=== PATIENT | female | born 1985 | race Two or more races ===

== ENCOUNTER 2016-12-25 16:22 | Emergency (ER) | payer MEDICAID ==
[~2016-12-25] VITALS: Ht 167.6 cm; Wt 89.8 kg
[2016-12-25 17:06] VITALS: BP 146/77
== END 2016-12-25 18:03 | disposition home or self-care (01) ==
LOC: EDBD 16:22 → ER 16:22

== ENCOUNTER 2017-08-12 19:56 | Emergency (ER) | payer MEDICAID ==
[~2017-08-12] VITALS: Ht 160 cm; Wt 89.8 kg
[2017-08-12 20:11] VITALS: BP 155/100
[2017-08-13] MEDS ORDERED: IBUPROFEN 600 MG TAB PO ONE (01:00)
== END 2017-08-13 00:52 | disposition home or self-care (01) ==
LOC: ER 19:56 → EDBD 19:56 → ER 08-13 00:52
DX: S16.1XXA Strain of muscle, fascia and tendon at neck level, initial encounter (principal); S46.912A Strain of unspecified muscle, fascia and tendon at shoulder and upper arm level, left arm, initial encounter; V49.49XA Driver injured in collision with other motor vehicles in traffic accident, initial encounter; Y93.89 Activity, other specified; Y92.89 Other specified places as the place of occurrence of the external cause; Y99.8 Other external cause status
CPT/HCPCS: 72125

== ENCOUNTER 2019-05-06 22:08 | Emergency (ER) | payer MEDICAID ==
[~2019-05-06] VITALS: Ht 162.6 cm; Wt 86.2 kg
[2019-05-07 01:11] VITALS: BP 104/84
[2019-05-07] MEDS ORDERED: cefTRIAXone SOD 1,000 MG VL IM ONE (01:15)
[2019-05-07] MEDS ORDERED: HYDROcodone-ACET 10/325MG TAB PO ONE (01:15)
== END 2019-05-07 02:26 | disposition home or self-care (01) ==
LOC: EDBD 22:08 → ER 22:10
DX: J06.9 Acute upper respiratory infection, unspecified (principal); H66.93 Otitis media, unspecified, bilateral
CPT/HCPCS: 96372; 99283; J0696

== ENCOUNTER 2025-07-15 14:01 | Emergency (ER) | payer MEDICAID ==
[~2025-07-15] VITALS: Ht 157.5 cm; Wt 90.9 kg
--- NOTE | 2025-07-15 14:22 | ED.PDOC ---
History of Present Illness HPI Comments 39 y/o obese F is BIBA for c/c of palpitations and generalized weakness. Patient endorses on onset of symptoms following intake of 1x 125mg THC edible at 0930, this morning. She denies any chest pain, shortness of breath, nausea, vomiting, or further acute symptoms. Significant history for cardiomegaly and p olysubstance abuse. No further pertinent events or history reported. Per EMS personnel report, patient's vitals were stable and within normal limits on scene and en route, with exception of being tachycardic in the 110's range. 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 Past Medical History Past Medical History (Other): cardiomegaly Surgical History: Appendectomy, Hernia Repair OIL DIPPER History: No Pertinent OIL DIPPER History Family History Family History: Reviewed,noncontributory to illness, No family hx of HTN, No family hx ofKidney shalini, No family hx of Liver shalini, No family hx of Lung shalini, No family hx of Stroke, Family hx of DM, Family hx of Cancer, Family hx of heart shalini Social History Smoker: Non-Smoker Alcohol: Occasionally Drugs: Marijuana Lives In: Home Constitutional: denies: chills, diaphoresis, fatigue, fever, malaise, sweats, weakness, others EENTM: denies: blurred vision, double vision, ear bleeding, ear discharge, ear drainage, ear pain, ear ringing, eye pain, eye redness, hearing loss, mouth pain, mouth swelling, nasal discharge, nose bleeding, nose congestion, nose pain, photophobia, tearing, throat pain, throat swelling, voice changes, others Respiratory: denies: cough, hemoptysis, orthopnea, SOB at rest, shortness of breath, SOB with excertion, stridor, wheezing, others Cardiovascular: reports: palpitations; denies: chest pain, dizzy spells, diaphoresis, Dyspnea on exertion, edema, irregular heart beat, left arm pain, lightheadedness, PND, syncope, others Gastrointestinal: denies: abdomen distended, abdominal pain, blood streaked bowels, constipated, diarrhea, dysphagia, difficulty swallowing, hematemesis, melena, nausea, poor appetite, poor fluid intake, rectal bleeding, rectal pain, vomiting, others Genitourinary: denies: abnormal vagina bleeding, burning, dyspareunia, dysuria, flank pain, frequency, hematuria, incontinence, pain, , vagina discharge, urgency, others Neurological: reports: weakness; denies: dizziness, fainting, headache, left sided numbness, left sided weakness, numbness, paresthesia, pre-existing deficit, right sided numbness, right sided weakness, seizure, speech problems, tingling, tremors, others Musculoskeletal: denies: back pain, gout, joint pain, joint swelling, muscle pain, muscle stiffness, neck pain, others Integumetry: denies: bruises, change in color, change in hair/nails, dryness, laceration, lesions, lumps, rash, wounds, others Allergic/Immunocompromised: denies: Difficulty Healing, Frequent Infections, Hives, Itching, others Hematologic/Lymphatic: denies: anemia, blood clots, easy bleeding, easy bru ising, swollen glands, others Endocrine: denies: excessive hunger, excessive sweating, excessive thirst, e xcessive urination, flushing, intolerance to cold, intolerance to heat, unexplained weight gain, unexplained weight loss, others Psychiatric: denies: anxiety, bipolar disorder, depression, hopeless, panic disorder, schizophrenia, sleepless, suicidal, others All Other Systems: Reviewed and Negative Physical Exam General Appearance: No Apparent Distress HEENT: Normal ENT Inspection, Pharynx Normal, TMs Normal Neck: Full Range of Motion, Non-Tender, Normal, Normal Inspection Respiratory: Chest Non-Tender, Lungs Clear, No Accessory Muscle Use, No Respiratory Distress, Normal Breath Sounds Cardiovascular: No Edema, No JVD, No Murmur, No Gallop, Normal Peripheral Pulses, Regular Rate/Rhythm Breast Exam: Deferred Gastrointestinal: No Organomegaly, Non Tender, No Pulsatile Mass, Normal Bowel Sounds, Soft Genitalia: Deferred Pelvic: Deferred Rectal: Deferred Extremities: No calf tenderness, Normal capillary refill, Normal inspection, Normal range of motion, Non-tender, No pedal edema Musculoskeletal : Apperance: Normal Neurologic: Alert, parachute inspector II-XII nml as Tested, No Motor Deficits, Normal Affect, No Sensory Deficits, Other (The patient is somewhat anxious) Cerebellar Function: Normal Reflexes: Normal Skin: Dry, Normal Color, Warm Lymphatic: No Adenopathy Was a procedure done? Was a procedure done?: No EKG EKG : Pulse Rate (adult): 114 [place]: Normal Cardiac Rhythm: ST Block: None Hypertrophy: None ST: Normal Differential Dx Considerations may include: anxiety, arrhythmia, dehydration, electrolyte imbalance, adverse substance effect, among others X-Ray, Labs, Meds, VS Vital Signs Date Time Temp Pulse Resp B/P (MAP) Pulse Ox O2 Delivery O2 Flow Rate FiO2 07/15/25 14:22 114 07/15/25 14:15 114 07/15/25 14:05 98.5 110 20 126/84 99 98.5 Lab Test 07/15/25 14:20 Range/Units Urine Color Colorless Yellow Urine Clarity Clear Clear Urine pH 7.0 5.0-9.0 Urine Specific [place] 1.003 1.001-1.035 Urine Protein Negative Negative Urine Ketones Negative Negative Urine Blood Negative Negative /uL Urine Nitrite Negative Negative Urine Bilirubin Negative Negative Urine Urobilinogen Normal Negative mg/dL Urine Leukocyte Esterase Negative Negative /uL Urine RBC <1 0 - 4 /hpf Urine Microscopic WBC < 1 0-5 /HPF Urine Squamous Epithelial Cells Few <5 /hpf Urine Bacteria None seen None Seen /hpf Urine Glucose Normal Normal mg/dL Urine Test Negative Negative The patient's urine test is negative for any infection The patient is being discharged The patient will follow up with the primary care doctor The patient will return to the emergency department's condition worsens The patient's diagnosis is acute anxiety Time of 1ST Reevaluation: 14:40 Reevaluation 1ST: Unchanged Patient Education/Counseling: Diagnosis, Treatment, Prognosis, Need For Follow Up Family Education/Counseling: No Family Present SEPSIS Sepsis Screen Physician Orders Electrocardigram (07/15/25 14:12) [place] Iv (07/15/25 ) Vital Signs Date Time Temp Pulse Resp B/P (MAP) Pulse Ox O2 Delivery O2 Flow Rate FiO2 07/15/25 14:22 114 07/15/25 14:15 114 07/15/25 14:05 98.5 110 20 126/84 99 98.5 Departure 1 Departure Time of Disposition: 16:08 Impression: Primary Impression: Acute anxiety Disposition: HOME / SELF CARE / HOMELESS Condition: Fair Discharged With: Self Critical Care Note Critical Care Time?: No Stability Stability form required: No Heart Score Heart Score: Heart Score Response (Comments) Value History N/A 0 EKG N/A 0 Age N/A 0 Risk Factors N/A 0 Troponin N/A 0 Total 0 I personally scribed for LION MARCUS MD ([email or web address]) on 07/15/25 at 14:22. Electronically submitted by Thomas Palafox ([email or web address]). LION MARCUS MD Jul 15, 2025 14:22
[2025-07-15] MEDS: SODIUM CHLORIDE 0.9% 1,000 ML IV ONE (14:30)
[2025-07-15 15:51] LABS: Urine Protein, UAD Negative (Negative)
[2025-07-15 16:39] VITALS: BP 120/76; PULSE 102; RESP 17; TEMP 98.2; O2SAT 100
--- NOTE | 2025-07-18 09:32 | ECG ---
[facility] Test Date: 2025-07-15 Test Time: 14:16:02 Pat Name: RADHA REEVES Department: ED Room: Gender: F Forensic Pathologist: naresh : 1985 Requested By: LION MARCUS Order Number: [id number] Reading MD: Robbie Walls Measurements Intervals [place] Rate: 114 P: 52 CA: 138 QRS: 45 QRSD: 87 T: 7 QT: 321 QTc: 443 Interpretive Statements Sinus tachycardia Low voltage, precordial leads Borderline T abnormalities, anterior leads Electronically Signed On 07-19-2025 17:43:07 PST by Robbie Walls Please click the below link to view image of tracing.
== END 2025-07-15 18:12 | disposition home or self-care (01) ==
LOC: ER 14:01 → EDBD 14:01 → ER 18:12
DX: F41.9 Anxiety disorder, unspecified (principal); R00.2 Palpitations; I51.7 Cardiomegaly; Z90.49 Acquired absence of other specified parts of digestive tract; Z98.890 Other specified postprocedural states
CPT/HCPCS: 81001; 81025; 93005; 96360; 96361